=== PATIENT | female | born 1985 ===

== ENCOUNTER 2018-11-06 05:23 | Inpatient (IN) | payer MEDICAID ==
[2018-11-06 05:44] VITALS: BMI 28.2
[2018-11-06] MEDS: Lactated Ringer's 1,000 ML IV ONE ×2 (05:45→06:15)
[2018-11-06] MEDS ORDERED: Lactated Ringer's 1,000 ML IV SCH (05:45)
[2018-11-06] MEDS ORDERED: Oxytocin 30 UNITS in Sodium Chloride 0.9% 500 ML IV ONE (05:46)
[2018-11-06 06:00] LABS: BASO % 0.3 % (0.0-2.0); EOS # 0.1 K/uL (0.0-0.7); EOS % 0.6 % (0.0-4.0); HEMOGLOBIN 11.2 g/dL (12.0-16.0); LYMPH # 2.1 K/uL (1.0-4.3); LYMPH % 25.8 % (20.0-40.0); MEAN CELL VOLUME 87.1 fl (81.0-99.0); MEAN CORPUSCULAR HEMOGLOBIN 28.4 pg (27.0-31.0); MEAN CORPUSCULAR HGB CONC 32.6 g/dL (33.0-37.0); MEAN PLATELET VOLUME 7.8 fl (7.2-11.7); MONO # 0.8 K/uL (0.0-0.8); NEUT % 63.3 % (50.0-75.0); NRBC % 0.1 % (0.0-0.0); RBC 3.93 Mil/uL (3.80-5.20); RED CELL DISTRIBUTION WIDTH 13.6 % (11.5-14.5)
[2018-11-06] MEDS ORDERED: OXYTOCIN/0.9 % NS 20 UNIT/1,000 ML BAG IV SCH (06:00)
[2018-11-06] MEDS ORDERED: Lidocaine 1% Inj (20ml) ONE (06:17)
[2018-11-06] MEDS ORDERED: Oxytocin 10 Units/ml Inj ONE (07:25)
[2018-11-06] MEDS ORDERED: Oxytocin 10 Units/ml Inj IM ONE (07:57)
--- NOTE | 2018-11-06 09:05 | OBDS ---
DELIVERY PERSONNEL Delivery Doctor: Kj Woods MD Signal Supervisor: Moreno Resident: Devan OB Fellow, Dr Silverman (resident) MATERNAL INFORMATION Delivery Anesthesia: Local Medications in Delivery: Pitocin 10U IM Estimated Blood Loss (ml): 100 Placenta Cultured: No Maternal Complications: None RN Comments: Atraumatic of viable babyboy with lusty cry. tolerated delivery well. APG ARs 9/9 skin to skin initiated patient and recoverying well Provider Comments: 29 year old GBS negative at 39.5, presented in spontaneous active labor. Unr emarkable intrapartum course. Normal spontaneous vaginal delivery of live male infact, position CABRERA o yvonne intact perineum without epidural anesthesia. No meconium, nuchal cord x1. Infant was placed on ma ternal abdomen and delayed cord clamping was performed. Apgars 9_9, no excessive resuscitation requir ed. Spontaneous delivery of placenta with 3-vessel cord. 2nd degree laceration, see repair note. QBL 100cc. Ximena Sims MD OB Fellow LABOR SUMMARY EDC: 11/08/2018 00:00 No. Babies in Womb: 1 Attempted: No Labor Anesthesia: None LABOR INFORMATION Reason for Induction: Not Applicable Onset of Labor: 11/06/2018 02:00 Complete Dilatation: 11/06/2018 06:47 Oxytocin: N/A Group B Beta Strep: Negative Antibiotics # of Doses: 0 Antibiotics Time of Last Dose: 0 Steroids Given: None Reason Steroids Not Administered: Not Applicable MEMBRANES Membranes Rupture Method: Artificial Rupture of Membranes: 11/06/2018 06:51 Length of Rupture (hrs): 0.53 Amniotic Fluid Color: Clear Amniotic Fluid Amount: Small Amniotic Fluid Odor: Normal STAGES OF LABOR Stage 1 hrs: 4 Stage 1 min: 47 Stage 2 hrs: 0 Stage 2 min: 36 Stage 3 hrs: 0 Stage 3 min: 5 Total Time in Labor hrs: 5 Total Time in Labor min: 28 VAGINAL DELIVERY Episiotomy: None Laceration Extension: Second Degree Laceration Type: Vaginal Laceration Repair: Yes Initial Vag Sponge Count: 5 Final Vag Sponge Count: 5 Initial Vag Sharps Count: 2 Final Vag Sharps Count: 2 Sponge Count Correct: Yes Sharps Count Correct: Yes Count Comment: count correct BABY A INFORMATION Infant Delivery Date/Time: 11/06/2018 07:23 Method of Delivery: Vaginal Born in Route : No : N/A Forceps: N/A Vacuum Extraction: N/A Shoulder Dystocia : No SHOULDER DYSTOCIA BABY A Infant Delivery Date/Time: 11/06/2018 07:23 PRESENTATION/POSITION BABY A Presentation: Cephalic Cephalic Presentation: Vertex Vertex Position: Left Occipital Anterior Breech Presentation: N/A PLACENTA INFORMATION BABY A Placenta Delivery Time : 11/06/2018 07:28 Placenta Method of Delivery: Spontaneous Placenta Status: Delivered SCORES BABY A Heart Rate 1 min: >100 bpm Resp Effort 1 min: Good Cry Reflex Irritability 1 min: Cough or Sneeze or Pulls Away Muscle Tone 1 min: Active Motion Color 1 min: Body [place], Extremities Blue Resuscitation Effort 1 min: Tactile Stimulation SCORE 1 MIN: 9 Heart Rate 5 min: >100 bpm Resp Effort 5 min: Good Cry Reflex Irritability 5 min: Cough or Sneeze or Pulls Away Muscle Tone 5 min: Active Motion Color 5 min: Body [place], Extremities Blue Resuscitation Effort 5 min: N/A SCORE 5 MIN: 9 INFANT INFORMATION BABY A Gestational Age at Delivery: 39.5 Gestational Status: Term Infant Outcome : Liveborn Condition : Fair Infant Sex: Male IDENTIFICATION/MEDS BABY A ID Band Number: [id number] ID Band Location: Left Leg; Left Arm WEIGHT/LENGTH BABY A Infant Birthweight (gms): 3955 Weight (lb): 8 Weight (oz): 11 CORD INFORMATION BABY A No. Cord Vessels: 3 Nuchal Cord : Around Neck x1, Loose Cord Blood Taken: No Suction: None ASSESSMENT BABY A Infant Complications: None Physical Findings at Delivery: Within Normal Limits; Caput Succedaneum Infant Respirations: Appears Normal Server Developer/ALS Called : No Infant Care By: Mariella/Nano Transferred To: Remains with Mother
--- NOTE | 2018-11-06 09:09 | OBHP ---
Datetime: 11/06/2018 06:28 IP Adm Impression: Term, intrauterine ; Active labor Admit Comment, IP Provider: 33 yo f 39.5wk With no pmh present to [facility] due to contraction that started @ 2:00 11/06/18. Pt denies water gush, vaginal bleed or any other symptoms. Allergy Clotrimazole MEd None PMh NOne PSH none OBGYN: 2 normal vag deliveries FH denies acute disease Social Denies smoking, drink or drug use 6:00am Assessment and plan 33 yo f 39.5wk With no pmh present to [place] due to contraction that started @ 2:00 11/06/18. P t admitted to L_D for delivery Pt is actively rosina NST is reactive Cervix 8 90 -2 Plan Initiate Vag delivery protocol Discussed with Dr Peggy Silverman PGY1 Attending Note: Patient was seen and evaluated with resident and I agree with the above assessment . Pelvic Type - PN: Adequate Extremities - PN: Normal Abdomen - PN: Normal Back - PN: Normal Breast - PN: Not Done Lungs - PN: Normal Heart - PN: Normal Thyroid - PN: Normal Neurologic - PN: Normal HEENT - PN: Normal General - PN: Normal FHR - Baseline A Provider: 135 Membranes, Provider: Intact Contraction Comments Provider: Q 2-3 Comments, ACOG Physical Exam: Pt is not acute distress Heart s1-s2 no extra heart sound lung clear abd non tender cervix 8 90 -2 Gestation - Est Wks by US: 39.5 EGA AdmitDate IP: 39.5 Vital Signs Provider: Reviewed; Within Normal Limits IP Chief Complaint: Uterine contractions; Maternal discomfort NICHD Variability Prov Fetus A: Moderate 6-25bpm NICHD Accel Fetus A IP Provider: [id number] FHR Category Provider Fetus A: Category I NICHD Decel Fetus A IP Provider: None Dilatation, Provider: 8 Effacement, Provider: 90 Station, Provider: -2 Genitourinary Exam: Normal DTRs - PN: Normal Datetime: 11/06/2018 05:53 IP Admit Plan: Admit to unit (Annotations: Data stored by CPN on behalf of user)
[2018-11-06] MEDS ORDERED: Benzocaine/Menthol SPRAY TOP PRN ×2 (09:39→16:06)
[2018-11-07 06:37] LABS: BASO % 0.2 % (0.0-2.0); EOS # 0.1 K/uL (0.0-0.7); EOS % 0.6 % (0.0-4.0); HEMOGLOBIN 10.4 g/dL (12.0-16.0); LYMPH # 2.1 K/uL (1.0-4.3); LYMPH % 19.5 % (20.0-40.0); MEAN CELL VOLUME 89.7 fl (81.0-99.0); MEAN CORPUSCULAR HEMOGLOBIN 29.4 pg (27.0-31.0); MEAN CORPUSCULAR HGB CONC 32.7 g/dL (33.0-37.0); MEAN PLATELET VOLUME 7.9 fl (7.2-11.7); MONO # 1.1 K/uL (0.0-0.8); MONO % 10.4 % (0.0-10.0); NEUT # 7.3 K/uL (1.8-7.0); NEUT % 69.3 % (50.0-75.0); NRBC % 0.1 % (0.0-0.0); RBC 3.54 Mil/uL (3.80-5.20); RED CELL DISTRIBUTION WIDTH 13.5 % (11.5-14.5); WHITE BLOOD COUNT 10.6 K/uL (4.8-10.8)
--- NOTE | 2018-11-07 12:40 | OBPPN ---
Datetime: 11/07/2018 08:21 PP Pain Prov: Within normal limits PP Nausea Prov: Denies PP Flatus Prov: Yes PP BM Prov: Yes PP Breasts Prov: Normal PP Heart Prov: Normal PP Lungs Prov: Normal PP Abdomen/Uterus Prov: Normal PP Lochia Prov: Normal PP Vulva/Perineum Prov: Not Done PP CVA Tenderness Prov: Normal PP Extremities Prov: Normal PP C/S Incision Prov: Not Applicable PP Progress Prov: Normal PP Impression Prov: Normal progression PP Plan Prov: Continue present management PP Progress Note Prov: S: 33 y/o s/p on 11/06/18. Patient seen and examined this morning b edside after an uneventful evening. Patient c/o occasional mild pelvic pain that is controlled with medication. She is tolerating normal diet w/o N/V. She has ambulated to the bathroom, is voiding madhav niharika and reports one bowel movement. Patient reports lochia is like menses in volume. w/ o difficulties. Denies LYNCH, chest pain, blurred vision, SOB, fever, or calf pain. O: VS WNL GEN: Sitting comfortably in bed, NAD HEENT: NCAT LUNGS: CTA, no wheezing CVS: RRR, S1, S2 present normal, no murmurs. ABD: uterus firm at umbilical level EXT: no edema, Abner's negative A/P 33 y/o s/p , with normal progression, patient is today on PPD1. -Regular diet -Encourage ambulation -Encourage -Ibuprofen 600mg 1 tab Q6h prn for mild-mod pain -D/C planned for tomorrow, 11/08/18 Michelle Kasper PGY1 Attending Note; patient was discussed with the Resident and I Agree with the above. IP PP Procedures: None Vital Signs Provider PP: Reviewed; Within Normal Limits
--- NOTE | 2018-11-08 10:40 | OBDCSUM ---
Datetime: 11/08/2018 09:24 Discharged to, Provider: Home Follow up at, Provider: ob Disch Instr Activity: Normal activity; May be up to bathroom; May be up for meals; May Shower Disch Instr Diet: Regular Discharge Diet restrict Prov: none Discharge Time: 11/08/2018 09:25 Follow up in weeks, Provider: 4-6weeks Disch Referrals: None Disch Activity Restrictions: Minimize stair-climbing; No sexual activity; Nothing in vagina - Interc ourse, tampons, douche Discharge Comment, Provider: Diagnosis: 33 y/o status-post of baby boy weighing 3955g on 11/06/18 at 7:23am. : Male Weight: 3955g : 9 Feeding: Breast Post- D/C Summary: No OB complications. No complications during post- period. Lochia l alex menses in volume. Pt able to pass gas, ambulate and pass urine. Tolerate regular diet, no LYNCH, CP, SOB, N/V, fever or other acute complaint at this time. Fundus firm below umbilicus level. Pt is hemo dynamically stable. H/H : ..7 (admission ..) Discharge Instructions given to patient: Encourage PNV 1 tab PO daily May take Ibuprofen OTC 400mg Q 6h prn for mild-mod pain if needed ED precautions: If excessive bleeding, pain that does not get relief, fever >100.4, palpitations, SOB, CP or other concerning symptom go to the ED PT was urged if feeling sad, mood swing, depression, neglect of baby, suicidal thoughts, homicidal thoughts go to ER or call 911 for help Pt should go to her Primary care doctor if have difficulty with breast feeding F/U in 4-6 week for PP visit with [facility]. Case reviewed and discussed with Attending Angelica Hernandez MD PGY1 The patient was seen with the resident I agree with the note
--- NOTE | 2018-11-08 10:40 | OBPPN ---
Datetime: 11/08/2018 09:53 PP Pain Prov: Within normal limits PP Nausea Prov: Denies PP Flatus Prov: Yes PP BM Prov: Yes PP Comments Phys Exam Prov: see progress note PP Impression Prov: Normal progression PP Progress Note Prov: S: 33 y/o s/p on 11/06/18. Patient seen and examined this morning b edside after an uneventful evening. Patient c/o occasional mild pelvic pain that is relief with pain medication. She is tolerating normal diet w/o N/V. She has ambulated to the bathroom, is voiding fr eely and reports BM. Patient reports lochia is like menses in volume. w/o difficulties. Denies LYNCH, chest pain, blurred vision, SOB, fever, or calf pain. O: VS WNL GEN: Sitting comfortably in bed, NAD HEENT: NCAT LUNGS: CTA, no wheezing CVS: RRR, S1, S2 present normal, no murmurs. ABD: uterus firm at umbilical level EXT: no edema, Abner's negative A/P 33 y/o s/p , with normal progression, patient is today on PPD2. -Regular diet -Encourage ambulation -Encourage -Ibuprofen 600mg 1 tab Q6h prn for mild-mod pain -D/C planned today Angelica Hernandez MD PGY1 The patient was seen with the resident I agree with the note Vital Signs Provider PP: Reviewed; Within Normal Limits
[2018-11-08 19:40] VITALS: BP 109/62; PULSE 86; RESP 19; TEMP 98.7; O2SAT 98
== END 2018-11-08 12:30 | disposition home or self-care (01) | DRG 373 ==
LOC: H.EROB2 05:23 → H.OB/GYN 05:44
PROVIDERS: ADMIT Obstetrics & Gynecology; ATTEND Obstetrics & Gynecology
PROC: 0KQM0ZZ Repair Perineum Muscle, Open Approach (ICD-10-PCS; principal; 2018-11-06)
PROC: 10E0XZZ Delivery of Products of Conception, External Approach (ICD-10-PCS; 2018-11-06)
PROC: 4A1HXCZ Monitoring of Products of Conception, Cardiac Rate, External Approach (ICD-10-PCS; 2018-11-06)
DX: O70.1 Second degree perineal laceration during delivery (principal); Z3A.39 39 weeks gestation of pregnancy; Z37.0 Single live birth; O69.81X0 Labor and delivery complicated by cord around neck, without compression, not applicable or unspecified